=== PATIENT | female | born 1955 | race African-American/Black ===

== ENCOUNTER 2019-09-27 01:07 | Emergency (ER) | payer MEDICARE, SELFPAY ==
--- NOTE | ~2019-09-27 | XR_ITS ---
XR hip RT 2V w AP pelvis 09/27/2019 02:04 INDICATION: Right hip pain after recent fall PROCEDURE: AP pelvis and 2 views right hip COMPARISON: No prior studies for comparison. FINDINGS: Fracture, dislocation or subluxation is not identified. The soft tissues appear within norm al limits. No foreign bodies are identified. IMPRESSION: 1: NO ACUTE BONE OR JOINT ABNORMALITY IDENTIFIED. Reviewed, dictated and finalized at location A. 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
[2019-09-27 01:12] VITALS: BP 174/71; PULSE 75; RESP 20; TEMP 36.6; O2SAT 98
--- NOTE | 2019-09-27 01:38 | ED.EXTPRO ---
HPI - Extremity Problem General Chief complaint: Extremity Problem,Nontraumatic Stated complaint: r leg pain and swollen Time Seen by Provider: 09/27/19 01:49 Source: patient and RN notes reviewed Mode of arrival: ambulatory Limitations: no limitations History of Present Illness HPI Narrative: Pt is a 64 y/o female presenting to the ED c/o hip pain. Pt reports she fell about 3 days ago, injuring her rt hip and RLE. Pt describes the pain as a burning sensation in her rt hip. Pt also reports BLE numbness for 1 week. Pt denies a Hx of DM. Onset (ago): day(s) (3) Location: right (Hip) Quality: burning Associated symptoms: other (BLE numbness; RLE pain) Related Data Home Medications Medication Instructions Recorded Confirmed baclofen mg 09/27/19 fesoterodine [Toviaz] mg PO 09/27/19 gabapentin 09/27/19 naproxen 09/27/19 omeprazole 09/27/19 sertraline mg 09/27/19 Allergies Allergy/AdvReac Type Severity Reaction Status Date / Time No Known Allergies Allergy Unknown Unverified 09/27/19 01:28 Review of Systems Review of Systems: All systems reviewed & are unremarkable except as noted in HPI and below Musculoskeletal: Musculoskeletal: Reports other (Rt hip pain; RLE pain) Neurologic: Reports numbness (BLE) PMFSH Past Medical History Medical History Arthritis Depression GERD (gastroesophageal reflux disease) HTN (hypertension) TIA (transient ischemic attack) Surgical History Surgical History History of appendectomy History of cholecystectomy Social History Social History Smoking status: Unknown if ever smoked Gender identity (if verbalized by the patient): Female Exam Narrative: Exam Narrative: GENERAL: Well-appearing, well-nourished, and in no acute distress. HEAD: Normocephalic, atraumatic. EYES: PERRLA and EOMI. ENT: Nares clear, . Mucous membranes moist. NECK: Supple. CHEST: Clear to auscultation. No respiratory distress. HEART: Regular rate and rhythm. No murmur heard. Normal peripheral pulses. EXTREMITIES: Normal range of motion. No edema.Pain in the right hip and thigh area, no swelling noted on the right leg. SKIN: Warm, dry, no rash. NEURO: No focal deficits. Alert and oriented x3. PSYCH: Normal mood and affect. Course Course Emergency Course: Inform patient about her x-ray findings. Advised her to take pain medication as prescribed, follow-up with the primary doctor. Vital Signs Vital signs: Vital Signs Temperature 36.6 C 09/27/19 01:12 Pulse Rate 75 09/27/19 01:12 Respiratory Rate 20 09/27/19 01:12 Blood Pressure 174/71 H 09/27/19 01:12 Pulse Oximetry 98 09/27/19 01:12 Temperature 36.6 C 09/27/19 01:12 Pulse Rate 75 09/27/19 01:12 Respiratory Rate 20 09/27/19 01:12 Blood Pressure 174/71 H 09/27/19 01:12 Pulse Oximetry 98 09/27/19 01:12 Discharge Plan Discharge Clinical Impression: Contusion of hip, right Patient Disposition: Home, Self-Care Condition: Stable Instructions: Antibiotic Form, Contusion in Adults (ED) Prescriptions: New naproxen [Naprosyn] 500 mg tablet 500 mg PO BID Qty: 14 RF: 0 No Action sertraline 100 mg tablet RF: 0 omeprazole 40 mg capsule,delayed release(DR/EC) RF: 0 baclofen 10 mg tablet RF: 0 gabapentin 300 mg capsule RF: 0 naproxen 500 mg tablet RF: 0 Toviaz 4 mg tablet extended release 24 hr PO RF: 0 Follow-up/Referrals: Dae,Pablo Sarabia MD [Primary Care Provider] - Time of Disposition: 02:16
[2019-09-27 02:35] VITALS: BP 154/73; PULSE 83; RESP 16; O2SAT 100
== END 2019-09-27 02:36 | disposition home or self-care (01) ==
PROVIDERS: Emergency Provider Family Medicine; PCP Family Medicine
DX: S70.01XA Contusion of right hip, initial encounter (principal); M19.90 Unspecified osteoarthritis, unspecified site; K21.9 Gastro-esophageal reflux disease without esophagitis; I10 Essential (primary) hypertension; F32.9 Major depressive disorder, single episode, unspecified; Z86.73 Personal history of transient ischemic attack (TIA), and cerebral infarction without residual deficits; W19.XXXA Unspecified fall, initial encounter
CPT/HCPCS: 73502; 73521; 99283; A9270

== ENCOUNTER 2020-11-09 09:45 | Outpatient (CLI) | payer MEDICARE, SELFPAY ==
--- NOTE | ~2020-11-09 | XR_ITS ---
EXAMINATION: XR hip RT min 2V DATE: 11/09/2020 10:22 INDICATION: Right hip pain. TECHNIQUE: 2 views of right hip were obtained. COMPARISON: Pelvis and right hip radiographs 09/27/2019 FINDINGS: Bone alignment is normal. No fracture. Right hip joint space is normal. There is mild lumba r spondylosis. IMPRESSION: 1. Normal right hip. Reviewed, dictated and finalized at location B. IMPRESSION: 1. Normal right hip.
== END 2020-11-09 09:46 ==
PROVIDERS: PCP Family Medicine; Visit Provider Nurse Practitioner Family
DX: M25.551 Pain in right hip (principal); M54.16 Radiculopathy, lumbar region
CPT/HCPCS: 73502

== ENCOUNTER 2020-12-01 09:05 | Outpatient (CLI) | payer MEDICARE, SELFPAY ==
--- NOTE | 2020-12-01 15:56 | NEURO_ITS ---
Patiient number: [id number] Impression: # Complains of numbness in arms and legs. # Mild Carpal Tunnel Syndrome, right more than left. 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 # Asymmetrical neuropathy involving lower extremities. # Needle exam mildly neurogenic. Nerve Conduction Studies Anti Sensory Summary Table Stim Site NR Peak (ms) P-T Amp (?V) Site1 Site2 Delta-P (ms) Dist (cm) Abraham (m/s) Left Median Anti Sensory (2-3nd Digit) Wrist 3.3 49.8 Wrist 2-3nd Digit 3.3 14.0 42 Wrist 3.3 53.6 Wrist 2-3nd Digit 3.3 14.0 42 Right Median Anti Sensory (2-3nd Digit) Wrist 3.8 20.9 Wrist 2-3nd Digit 3.8 14.0 37 Wrist 3.7 27.6 Wrist 2-3nd Digit 3.8 14.0 37 Left Radial Anti Sensory (Base 1st Digit) Wrist 1.9 29.0 Wrist Base 1st Digit 1.9 0.0 Right Radial Anti Sensory (Base 1st Digit) Wrist 2.7 20.0 Wrist Base 1st Digit 2.7 0.0 Left Sup Fibular Anti Sensory (Ant Lat Mall) 14 cm 4.3 14.4 14 cm Ant Lat Mall 4.3 16.0 37 Right Sup Fibular Anti Sensory (Ant Lat Mall) 14 cm 3.6 18.4 14 cm Ant Lat Mall 3.6 16.0 44 Left Sural Anti Sensory (Lat Mall) Calf 3.2 27.0 Calf Lat Mall 3.2 16.0 50 Right Sural Anti Sensory (Lat Mall) Calf 4.1 14.1 Calf Lat Mall 4.1 16.0 39 Left Ulnar Anti Sensory (5th Digit) Wrist 2.8 18.2 Wrist 5th Digit 2.8 14.0 50 Right Ulnar Anti Sensory (5th Digit) Wrist 2.6 17.2 Wrist 5th Digit 2.6 14.0 54 Motor Summary Table Stim Site NR Onset (ms) O-P Amp (mV) Site1 Site2 Delta-0 (ms) Dist (cm) Abraham (m/s) Left Median Motor (Abd Poll Brev) Wrist 3.5 6.0 Elbow Wrist 5.2 26.0 50 Elbow 8.7 6.2 Right Median Motor (Abd Poll Brev) Wrist 4.2 4.9 Elbow Wrist 5.2 24.0 46 Elbow 9.4 4.9 Left Peroneal Motor (Vastus Med) Ankle 4.1 4.5 Popit Ankle 8.9 31.0 35 Popit 13.0 4.1 Right Peroneal Motor (Vastus Med) Ankle 4.7 2.6 Popit Ankle 8.0 32.0 40 Popit 12.7 2.7 Left Tibial Motor (Abd Costa Brev) Ankle 4.3 2.6 Knee Ankle 9.6 41.0 43 Knee 13.9 1.6 Right Tibial Motor (Abd Costa Brev) Ankle 3.9 2.5 Knee Ankle 10.1 39.0 39 Knee 14.0 1.8 Left Ulnar Motor (Abd Dig Minimi) Wrist 2.5 8.0 A Elbow Wrist 6.6 26.0 39 A Elbow 9.1 5.9 B Elbow Wrist 4.4 23.0 52 B Elbow 6.9 6.2 Right Ulnar Motor (Abd Dig Minimi) Wrist 2.7 3.3 A Elbow Wrist 7.0 27.0 39 A Elbow 9.7 2.4 B Elbow Wrist 4.3 21.0 49 B Elbow 7.0 2.2 F Wave Studies NR F-Lat (ms) L-R F-Lat (ms) Left Median (Mrkrs) (Abd Poll Brev) 29.53 0.48 Right Median (Mrkrs) (Abd Poll Brev) 29.05 0.48 Left Peroneal (Mrkrs) (EDB) 52.23 0.19 Right Peroneal (Mrkrs) (EDB) 52.04 0.19 Left Tibial (Mrkrs) (Abd Hallucis) 52.82 2.06 Right Tibial (Mrkrs) (Abd Hallucis) 50.76 2.06 Left Ulnar (Mrkrs) (Abd Dig Min) 28.98 0.68 Right Ulnar (Mrkrs) (Abd Dig Min) 29.67 0.68 EMG Side Muscle Nerve Root Ins Act Fibs Amp Dur Recrt Comment Right 1stDorInt Ulnar C8-T1 Nml Nml Nml >12ms Reduced Right Ext Indicis Radial (Post Int) C7-8 Nml Nml Nml Nml Nml Right Ext Digitorum Radial (Post Int) C7-8 Nml Nml Nml Nml Nml Right BrachioRad Radial C5-6 Nml Nml Nml Nml Nml Right PronatorTeres Median
== END 2020-12-01 09:06 | disposition home or self-care (01) ==
PROVIDERS: PCP Family Medicine; Visit Provider Family Medicine
DX: G56.03 Carpal tunnel syndrome, bilateral upper limbs (principal); G56.23 Lesion of ulnar nerve, bilateral upper limbs
CPT/HCPCS: 95886; 95913

== ENCOUNTER 2020-12-02 13:48 | Outpatient (CLI) | payer MEDICARE, SELFPAY ==
--- NOTE | ~2020-12-02 | XR_ITS ---
EXAMINATION: XR hip RT min 2V DATE: 12/02/2020 14:51 INDICATION: Right hip pain. TECHNIQUE: 2 views of right hip were obtained. COMPARISON: Right hip radiographs 11/09/2020 FINDINGS: Bone alignment is normal. No fracture. Right hip joint space is normal. IMPRESSION: 1. Normal right hip. Reviewed, dictated and finalized at location B. IMPRESSION: 1. Normal right hip.
--- NOTE | ~2020-12-02 | MR_ITS ---
EXAMINATION: MR lumbar spine wo con DATE: 12/02/2020 14:42 INDICATION: Lumbar radiculopathy. Right-sided back pain. TECHNIQUE: Magnetic resonance imaging (MRI) of the lumbar spine was performed without intravenous con trast. Sequences included sagittal T2-weighted FSE, sagittal T2-weighted FS FSE, sagittal T1-weighted FSE, and axial T2-weighted FSE. COMPARISON: None FINDINGS: There is 6 degrees levocurvature of lumbar spine. Vertebral body heights are normal. There is severely decreased disc height at L1-L2, moderately decreased disc height at L2-L3, and mildly dec reased disc height at L3-L4 and L4-L5 with endplate remodeling. There is ligamentum flavum hypertroph y at the disc levels from L1-L2 through L4-L5. The distal spinal cord signal intensity is normal. The conus medullaris is at T12. The following disc levels are specifically discussed: L1-L2: The disc is bulging and has an annular fissure. There is moderate right and severe left facet joint osteoarthritis. There is mild bilateral neural foraminal stenosis. There is mild central canal stenosis. L2-L3: The disc is bulging and has an annular fissure. There is severe bilateral facet joint osteoart hritis. There is mild bilateral neural foraminal stenosis. There is mild central canal stenosis. L3-L4: The disc is bulging. There is severe right and mild left facet joint osteoarthritis. There is mild bilateral neural foraminal stenosis. There is mild central canal stenosis. L4-L5: The disc is bulging and has an annular fissure. There is severe right and moderate left facet joint osteoarthritis. There is mild bilateral neural foraminal stenosis. There is mild central canal stenosis. L5-S1: The disc is bulging. There is moderate bilateral facet joint osteoarthritis. There is mild aldair ateral neural foraminal stenosis. There is mild central canal stenosis. IMPRESSION: 1. Severe lumbar spondylosis. Reviewed, dictated and finalized at location B.
== END 2020-12-02 13:49 ==
PROVIDERS: Visit Provider Nurse Practitioner Family
DX: M25.551 Pain in right hip (principal); M54.16 Radiculopathy, lumbar region
CPT/HCPCS: 72148; 73502

== ENCOUNTER 2021-01-13 07:46 | Outpatient (CLI) | payer MEDICARE, SELFPAY ==
--- NOTE | ~2021-01-13 | MR_ITS ---
EXAMINATION: MR brain/brain stem wo con DATE: 01/13/2021 08:33 INDICATION: Memory complaints. The needle. TECHNIQUE: Magnetic resonance imaging (MRI) of the brain and brainstem was performed without intraven ous contrast. Sequences included sagittal and axial T1-weighted SE, axial diffusion-weighted FS SE, a xial T2*-weighted GRE, axial T2-weighted FLAIR, and axial T2-weighted FSE. Apparent diffusion coeffic ient (ADC) maps were created. COMPARISON: Head CT dated 04/05/2015 FINDINGS: Small region of encephalomalacia at the anterosuperior right insula consistent with chronic infarct. Additional small old lacunar infarct at the left thalamus. There are no areas of restricted diffusion to suggest acute infarction. No intracranial hemorrhage or abnormal intracranial mass lesion. There are no intraparenchymal signal abnormalities seen on the other pulse sequences. The ventricles are sy mmetric and normal in size. There are no abnormal extra-axial fluid collections. Flow voids are seen in the cerebral arteries on the T2-weighted sequences consistent with their expected patency. Visuali zed orbits and soft tissues are unremarkable. IMPRESSION: 1. 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 No acute intracranial process . Reviewed, dictated and finalized at location A. IMPRESSION: 1. 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 No acut e intracranial process.
== END 2021-01-13 07:47 ==
PROVIDERS: PCP Family Medicine
DX: R41.3 Other amnesia (principal); Z86.73 Personal history of transient ischemic attack (TIA), and cerebral infarction without residual deficits
CPT/HCPCS: 70551

== ENCOUNTER 2024-06-18 14:42 | Outpatient (CLI) | payer MEDICARE, SELFPAY ==
--- NOTE | ~2024-06-18 | MM_ITS ---
EXAMINATION: MM screening ada BI w samuel HISTORY: Screening TECHNIQUE: Craniocaudal and mediolateral oblique 3-D tomosynthesis images were obtained and synthetic 2-D images were generated. CAD analysis was submitted and interpreted. COMPARISON: No prior mammogram is available for comparison at this institution. BREAST PARENCHYMAL COMPOSITION: Not dense: There are scattered areas of fibroglandular density. FINDINGS: There is no evidence of suspicious mass, calcification, or architectural distortion to sugg est malignancy in either breast. There has been no suspicious interval change. IMPRESSION: 1. No mammographic evidence of malignancy. 2. Recommend routine screening mammography in one year. BI-RADS Category 1: Negative Reviewed, dictated and finalized at location B. 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
== END 2024-06-18 14:43 | disposition home or self-care (01) ==
LOC: MICIMG 14:42
PROVIDERS: PCP Nurse Practitioner; Visit Provider Nurse Practitioner
DX: Z12.31 Encounter for screening mammogram for malignant neoplasm of breast (principal)
CPT/HCPCS: 77063; 77067

== ENCOUNTER 2025-06-01 12:53 | Outpatient (CLI) | payer MEDICARE, SELFPAY ==
--- NOTE | ~2025-06-01 | US_ITS ---
EXAM/PROCEDURE: US venous doppler LE LT HISTORY: Pain in the left lower extremity. Localized edema. COMPARISON: None available. TECHNIQUE: Grayscale, color Doppler, and spectral analysis. FINDINGS: All major venous structures appear patent and compressible from the groin to the popliteal, at least. Visualized calf veins are patent. No significant abnormality is seen. No adenopathy is seen. IMPRESSION: No acute findings. Reviewed, dictated and finalized at location A. 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
--- NOTE | ~2025-06-01 | US_ITS ---
EXAMINATION: US carotid duplex BI DATE: 06/01/2025 15:08 INDICATION: TECHNIQUE: Grayscale, color Doppler, and pulsed Doppler images of the cervical carotid arteries were obtained. The degree of vessel stenosis is placed in one of the following categories: normal, <50%, 50-69%, >=70% but less than near- occlusion, near-occlusion, or total occlusion. Note that percent stenosis relative to normal distal artery lumen diameter is indirectly measured from velocity measurements as described by Coy, et al. Radiology 2003; 229:340-346. COMPARISON: None. FINDINGS: RIGHT: The right common carotid artery (CCA) peak systolic velocity (PSV) is 63 cm/s. The right internal carotid artery (ICA) PSV is 103 cm/s. The right ICA end- diastolic velocity (EDV) is cm/s. The right ICA/CCA PSV ratio is 1.7. Grayscale and color Doppler images yield an estimate of less than 50%% diameter reduction from plaque in the ICA. There is antegrade flow in the right vertebral artery. LEFT: The left CCA PSV is 53 cm/s. The left ICA PSV is 125 cm/s. The left ICA EDV is 38 cm/s. The left ICA/CCA PSV ratio is 2.4. Complex plaque also present measuring 9.5 x 6.5 mm in the carotid bulb region of both carotid arteries. Grayscale and color Doppler images yield an estimate of 50-69% diameter reduction from plaque in the ICA. There is antegrade flow in the left vertebral artery. Incompletely characterized thyroid nodule incidentally noted. IMPRESSION: 1. Less than 50 stenosis in the right internal carotid artery. Complex-appearing plaque present. 2. 50-69 stenosis in the left internal carotid artery. Complex appearing plaque present. 3. Thyroid nodule. Recommend correlation with follow-up thyroid ultrasound. Reviewed, dictated and finalized at location A. 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 Less than 50 stenosis in the right internal carotid artery. Complex-appearin g plaque present. 2. 50-69 stenosis in the left internal carotid artery. Complex appearing plaque present. 3. Thyroid nodule. Recommend correlation with follow-up thyroid ultrasound.
--- OUTSIDE RECORDS SUMMARY | 2025-06-01 13:19 | XMS_ITS | Clinical Summary ---
Author Organization [facility] Address [address] [place] [address] Care Team Providers Care Pill Coater Name Role Phone Pablo Pearl MD Primary Care Provider [phone] Source Comments [facility],non-owned Affiliates and Associated Physician Practices is amultiple site organization consisting of ambulatory clinics and hospital sitesin [place], [place], [place] and [place]. This disclosure is being madepursuant to the Care Everywhere program and may not contain all information available regarding this patient. Last updated 18.[facility] Allergies No known active allergies Medications * Be aware that medications may not be up to date on this document. Alwaysverify current medications with the patient. topiramate (TOPAMAX) 25 MG tablet 6 Active diclofenac sodium (VOLTAREN) 1 % gel 6 Active clotrimazole-beta methasone (LOTRISONE) 1-0.05 % cream 6 Active sertraline (ZOLOFT) 100 MG tablet 6 Active losartan (COZAAR) 100 MG tablet 7 Active baclofen (LIORESAL) 10 MG tablet Take 10 mg by mouth 3 times daily May cause drowsiness. Active omeprazole (PRILOSEC) 40 MG capsule Take 40 mg by mouth daily before breakfast Active oxybutynin CR 24hr (DITROPAN-XL) 5 MG tablet Take 5 mg by mouth once daily Active Cobalamin Combinations (B-12) 100-5000 MCG SUBL Active Cholecalciferol (D3-1000) 25 MCG (1000 UT) Active hydroCHLOROthiazi de (MICROZIDE) 12.5 MG capsule Take 12.5 mg by mouth once daily 1 Active traZODone (DESYREL) 50 MG tablet Take 50 mg by mouth 1 Active tjtcn-3-fdjo ethyl esters (LOVAZA) 1 g capsule Take 1 g by mouth once daily 1 Active gabapentin (NEURONTIN) 600 MG tablet Take 600 mg by mouth 1 Active benzonatate (TESSALON) 200 MG capsule Take 1 capsule by mouth 3 times daily as needed Active Immunizations Immunization Administration Dates Next Due FLU VACCINE QUAD IIV4 SPLIT 0.25 ML IM 6,04/06/2015 Family History Medical History Relation Name Comments Lupus Niece Relation Name Status Comments Niece Social History Tobacco Use Types Packs/Day Years Used Date Smoking Tobacco: Every Day Cigarettes Smokeless Tobacco: Never Alcohol Use Standard Drinks/Week Comments Not Currently 0 (1 standard drink = 0.6 oz pur e alcohol) PHQ-2 Answer Date Recorded PHQ2 TOTAL SCORE 3 02/02/2021 Comments Unknown Sex and Gender Information Value Date Recorded Sex Assigned at Not on file 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 Gender Identity Not on file Sexual Orientation Not on file Last Filed Vital Signs Vital Sign Reading Time Taken Comments Blood Pressure 140/76 02/02/2021 9:54 AM CDT Pulse 68 02/02/2021 9:54 AM CDT Temperature 37.3 C (99.1 F) 02/02/2021 9:54 AM CDT Respiratory Rate - - Oxygen Saturation - - Inhaled Oxygen Concentration - - Weight 73.9 kg (163 lb) 02/02/2021 9:54 AM CDT Height 162.6 cm (5' 4) 02/02/2021 9:54 AM CDT Body Mass Index 27.98 02/02/2021 9:54 AM CDT Plan of Treatment Health Maintenance Due Date Last Done Comments BONE DENSITY TESTING 1955 COLON MONITORING 1956 COLONOSCOPY - COLON CA SCREENING 1956 CT COLONOGRAPHY - COLON CA SCREENING 1955 FIT - COLON CA SCREENING 1955 FLEX SIG - COLON CA SCREENING 1955 LIPID TESTING 1955 MAMMOGRAM 1955 DTAP/TDAP/TD VACCINES (1 - Tdap) 1975 PNEUMOCOCCAL VACCINE 50+ (1 of 2 - PCV) 1975 ZOSTER VACCINE (1 of 2) 2006 SCREENING FOR DIABETES 12/01/2020 COLOGUARD (AGES 45-75) - COL ON CA SCREENING 10/31/2022 11/01/2019 Colorectal Cancer Screening 10/31/2022 DEPRESSION SCREENING 07/23/2024 MEDICARE AWV CALENDAR YEAR 2024 COVID-19 VACCINE (1 - 2023-2 5 season) 2025 INFLUENZA VACCINE (#1) 2025 6, 04/06/2015 Respiratory Syncytial Virus (RSV) Vaccine Pt: or over 60 yrs (1 - 1-dose 75+ series) 2031 HEPATITIS C SCREENING Completed 12/01/2020 HEPATITIS B VACCINE Aged Out No longe r eligible based on patient's age to complete this topic HIB VACCINE Aged Out No longer eligi ble based on patient's age to complete this topic HPV VACCINE Aged Out No longer eligi ble based on patient's age to complete this topic MENINGOCOCCAL (Group B) VACCINE SHARED DECISION-MAKING Aged Out No longer eligible based on patient's age to complete this topic MENINGOCOCCAL GROUPS A/C/Y/W VACCINE Aged Out No longer eligible b ased on patient's age to complete this topic Procedures Procedure Name Priority Date/Time Associated Diagnosis Comments HEPATITIS C AB SCREEN RFLX NAAT QUANT Routine 12/01/2020 2:35 PM CDT Polyarthralgia from Last 3 Months or Most Recently Relevant to Health Maintenance Results * HEPATITIS C AB SCREEN RFLX NAAT QUANT (12/01/2020 2:35 PM CDT) Hepatitis C Antibody Non-react maurilio Non-reac tive 12/01/2020 3:58 PM CDT [facility] Comment:Hepatitis C Antibody screen indicates no serologic evidence of past or current infection with Hepatitis C Virus. Patients with unexplained liver disease who are immunocompromised or suspected of having acute Hepatitis C infection may benefit from Nucleic Acid Test (KAT) for Hepatitis C Viral RNA to confirm Hepatitis C status. Blood BLOOD SPECIMEN / Unknown Lab Venipuncture / Unknown 12/01/2020 2:35 PM CDT 12/01/2020 3:10 PM CDT Isidoro Steve MD LAB - CHEMISTRY ORDERABLES Fi nal Result [id number] [place] [address], [facility] [phone] from Last 3 Months or Most Recently Relevant to Health Maintenance Insurance [place] [id number] * Guarantor: Hiwot Zabala Account Type Relation to Patient Date of Phone Billing Address Personal/Family Self 1955 [address] [place] [id number] [facility] MANAGED MEDICARE ADV [place] [id number] Care Teams Pill Coater Relationship Specialty Start Date End Date Pablo Pearl MD [address] [place] [address] [address] [place] [id number] [facility] - General 11/22/20
--- OUTSIDE RECORDS SUMMARY | 2025-06-01 13:19 | XMS_ITS | Clinical Summary ---
Author Organization [facility] Address [address] [place] [id number] Care Team Providers Care Access Database Developer Name Role Phone Unavailable Primary Care Provider Unavailabl e Social History Tobacco Use Types Packs/Day Years Used Date Smoking Tobacco: Never Assessed Comments Unknown Sex and Gender Information Value Date Recorded Sex Assigned at Not on file Legal Sex Female 6:47 PM CDT Gender Identity Not on file Sexual Orientation Not on file Plan of Treatment Health Maintenance Due Date Last Done Comments Colorectal Cancer Screening Colonoscopy (10 Years) 1956 Hepatitis C 1974 DTaP, Tdap and Td Vaccines ( 1 - Tdap) 1975 Mammogram Screening 1996 Pneumococcal Vaccine: 50+ Ye ars (1 of 1 - PCV) 2006 Zoster Vaccines (1 of 2) 2006 Dexa Scan (General) 2021 COVID-19 Vaccine ( - 2024-2 6 season) 2025 Influenza Adult (#1) 2025 RSV Immunization or 60+ Years (1 - 1-dose 75+ series) 2031 Hepatitis A Vaccines Aged Out No long er eligible based on patient's age to complete this topic Meningococcal B Vaccine Aged Out No l onger eligible based on patient's age to complete this topic Meningococcal Vaccine Aged Out No kem jennifer eligible based on patient's age to complete this topic RSV Immunizations Under 20 Months Aged Out No longer eligible based on patient's age to complete this topic
== END 2025-06-01 12:54 | disposition home or self-care (01) ==
PROVIDERS: PCP Registered Nurse; Visit Provider Registered Nurse
DX: I65.23 Occlusion and stenosis of bilateral carotid arteries (principal); R60.0 Localized edema; E04.1 Nontoxic single thyroid nodule
CPT/HCPCS: 93880; 93971

== ENCOUNTER 2025-06-29 12:01 | Outpatient (CLI) | payer MEDICARE, SELFPAY ==
--- NOTE | ~2025-06-29 | DEXA_ITS ---
Bone Density Report Name: LENARD YEBOAH Age: 70 Sex: Female Ethnicity: Black Date of : 1955 Indication: postmenopausal; screening for osteoporosis; height loss; prior fracture; rheumatoid arthritis; Referring Provider: LENARD BILLY Study: Bone densitometry was performed. Exam Date: June 29, 2025 Accession number: [id number] Bone Density: Region BMD T-score Z-score Classification AP Spine(L3, L4) 1.162 0.6 1.9 Normal Femoral Neck (Left) 0.599 -2.3 -1.1 Osteopenia Total Hip (Left) 0.774 -1.4 -0.6 Osteopenia Femoral Neck (Right) 0.686 -1.5 -0.5 Osteopenia Total Hip (Right) 0.735 -1.7 -0.8 Osteopenia Total Hip Mean 0.755 -1.6 -0.7 Osteopenia World Health Organization criteria for BMD impression classify patients as: Normal (T-score at or above -1.0), Osteopenia (T-score between -1.0 and -2.5), or Osteoporosis (T-score at or below -2.5). 10-year Fracture Risk: FRAX not reported because: Prior hip or vertebral fracture Clinical Information Provided by Patient: Have had a previous hip or vertebral fracture Has had a low trauma fracture Has rheumatoid arthritis Has used the following medications: Vitamin D Patient maximum height was 63 Menopause Age: 51 No regular weight bearing exercise Drinks caffeinated beverages Onset of menses at age 13 Number of children 2 Impression: The patient has low bone mass, based on the Left Femoral Neck T-score. The patient has risk factors, including: previous fracture. Discussion: INCREASED RISK OF FRACTURE DUE TO HISTORY OF FRACTURE. The patient's previous fracture puts the patient at high risk of a future fracture. In untreated patients, the risk of osteoporotic fracture increases approximately two-fold for each 1.0 SD decrease in T-score. Low bone density is not the only risk factor for fracture; also consider factors such as patient's age, frailty or poor health, risk of falling, risk of injury, previous osteoporotic fracture, family history of osteoporosis, cigarette smoking, low body weight, etc. Not everyone with a low trauma fracture has osteoporosis; osteomalacia and other metabolic bone disorders should also be considered. Patients who have osteoporosis should be evaluated for specific diseases and conditions (secondary causes) that may cause or contribute to bone loss and fracture risk. National Osteoporosis Foundation (NOF) recommends pharmacologic intervention for patients with a prior hip or vertebral fracture regardless of BMD T-score. The patient should follow a healthful lifestyle (good nutrition with adequate calcium and vitamin D, and appropriate weight-bearing exercise). Follow-Up: Consider a repeat BMD and Vertebral Fracture Assessment (VFA) exam in 2 years or sooner if medically necessary, to reassess this patient's status. Reported by: YOHANA on 06/29/2025 12:53:00 PM. Reviewed, dictated and finalized at location A.
== END 2025-06-29 12:02 | disposition home or self-care (01) ==
DX: M85.89 Other specified disorders of bone density and structure, multiple sites (principal); Z78.0 Asymptomatic menopausal state; Z13.820 Encounter for screening for osteoporosis
CPT/HCPCS: 77080